=== PATIENT | female | born 1965 | race Caucasian/White ===

== ENCOUNTER 2016-12-05 16:06 | Inpatient (IN) | payer MEDICAID ==
[~2016-12-05] VITALS: Ht 162.6 cm; Wt 130.6 kg
--- NOTE | 2016-12-05 16:07 | NUR ---
BIB FAMILY FOR DIFFUSED ABDOMINAL PAIN, MOSTLY RUQ,9/10, NON RADIATING. PATIENT IS AWAKE, ALERT AND ORIENTED. APPEARS IN NO ACUTE DISTRESS, RESPIRATION EVEN AND UNLABBORED. SKIN IS WARM TO TOUCH AND NON DIAHORETIC. AFEBRILE REPORTED NAUSEA, VOMITING X 2 DAYS. PATIENT'S VS STABLLE. WILL CONT TO MONITOR.
[2016-12-05] MEDS ORDERED: MORPHINE SULFATE INJ 2 MG/ML DISP.SYRIN IV ONE (17:30)
[2016-12-05] MEDS ORDERED: ONDANSETRON HCL/PF 4 MG/2 ML VIAL IVP ONE (17:30)
[2016-12-05] MEDS ORDERED: IV NS 0.9% 1,000 ML BAG IV ONE (17:30)
--- NOTE | 2016-12-05 17:30 | NUR ---
IV ACCESSED TO LEFT WRIST 20, BLOOD SAMPLE SENT TO LAB
[2016-12-05] MEDS ORDERED: ONDANSETRON HCL/PF 4 MG/2 ML VIAL ONE ×2 (17:36→19:43)
[2016-12-05] MEDS ORDERED: IV NS 0.9% 1,000 ML ONE ×2 (17:36→23:41)
[2016-12-05] MEDS ORDERED: IV SET PRIMARY PUMP SET 1 EA INFUS.SET MC ONE ×2 (17:36→23:41)
[2016-12-05] MEDS ORDERED: MORPHINE SULFATE INJ 4 MG/ML DISP.SYRIN ONE ×2 (17:36→20:06)
[2016-12-05 17:43] LABS: BASOPHILS # (AUTO) 0.6 /CMM (0.0-0.2); BASOPHILS % (AUTO) 4.3 % (0.0-2.0); EOSINOPHILS % (AUTO) 0.3 % (0.0-6.0); HEMATOCRIT 37 % (33-45); HEMOGLOBIN 11.4 g/dL (11.5-14.8); LYMPHOCYTES # (AUTO) 1.4 /CMM (0.8-4.8); LYMPHOCYTES % (AUTO) 10.7 % (20.0-44.0); MEAN CORPUSCULAR HEMOGLOBIN 19 PG (26.0-33.0); MEAN CORPUSCULAR HGB CONC 31 g/dl (31.0-36.0); MEAN CORPUSCULAR VOLUME 61 fL (82-100); MONOCYTES # (AUTO) 0.6 /CMM (0.1-1.30); MONOCYTES % (AUTO) 4.5 % (2.0-12.0); NEUTROPHILS # (AUTO) 10.5 /CMM (1.8-8.9); NEUTROPHILS % (AUTO) 80.2 % (43.0-81.0); PLATELET COUNT (AUTO) 272 /CMM (150-450); RDW COEFFICIENT OF VARIATION 17.4 (11.5-15.0); RED BLOOD CELL COUNT(AUTO) 5.98 MIL/uL (4.0-5.2); WHITE BLOOD COUNT (AUTO) 13.1 K/uL (4.3-11.0)
--- NOTE | 2016-12-05 17:47 | NUR ---
MEDICATED PATIENT FOR PAIN ORDRED
[2016-12-05 17:57] LABS: ALBUMIN 3.6 g/dL (3.4-5.0); BILIRUBIN,DIRECT 0.1 mg/dL (0.0-0.2); BILIRUBIN,TOTAL 0.4 mg/dL (0.2-1.0); CALCIUM, SERUM 8.7 mg/dL (8.5-10.1); CREATININE 0.6 mg/dL (0.6-1.3); POTASSIUM 4.5 mmol/L (3.5-5.1); TOTAL PROTEIN, SERUM 8.1 g/dL (6.4-8.2)
--- NOTE | 2016-12-05 18:01 | NUR ---
ANITA BARNEY AT
--- NOTE | 2016-12-05 18:37 | NUR ---
Patient is resting comfortably in bed with eyes closed. Easily aroused. VSS.Fluid ongoing
[2016-12-05] MEDS ORDERED: MAG HYDROX/AL HYDROX/SIMETH 30 ML UDC PO ONE (19:00)
[2016-12-05] MEDS ORDERED: FAMOTIDINE/PF INJ 20 MG/2 ML VIAL IV ONE ×2 (19:00→19:07)
[2016-12-05] MEDS ORDERED: MAG HYDROX/AL HYDROX/SIMETH 30 ML UDC ONE (19:07)
--- NOTE | 2016-12-05 19:08 | NUR ---
REPORT GIVEN TO NUSRAT DAVIS
[2016-12-05 19:11] LABS: EOSINOPHILS % (MANUAL) 2 % (0-4); LYMPHOCYTES % (MANUAL) 14 % (16-48); MONOCYTES % (MANUAL) 7 % (0-11.0); NEUTROPHILS % (MANUAL) 77 (42-76)
[2016-12-05 19:12] LABS: PLATELET ESTIMATE ADEQU
[2016-12-05] MEDS ORDERED: ONDANSETRON HCL/PF 4 MG/2 ML VIAL IV STA (19:35)
[2016-12-05] MEDS ORDERED: MORPHINE SULFATE INJ 2 MG/ML DISP.SYRIN IV STA (19:55)
--- NOTE | 2016-12-05 19:55 | NUR ---
patient to ct.
[2016-12-05 19:56] LABS: APPEARANCE,URINE Clear (CLEAR); BILIRUBIN,URINE Negative (NEGATIVE); BLOOD, URINE Negative Ery/uL (NEGATIVE); COLOR,URINE Yellow (YELLOW); KETONES,URINE 15 (NEGATIVE); LEUKOCYTE ESTERASE ,URINE Negative (NEGATIVE); NITRITE, URINE Negative (NEGATIVE); PH,URINE 5.5 (5.0-8.0); PROTEIN,URINE Trace mg/dl (NEGATIVE); UGLUCOSE Negative (NEGATIVE); UROBILINOGEN,URINE 0.2 EU/dL (0.2)
--- NOTE | 2016-12-05 20:18 | NUR ---
TALKING ON THE PHONE WITH NO S/S OF DISTRESS NOTED. RESP EVEN AND UNLABORED. AWAITS CT SCAN RESULTS.
[2016-12-05 21:54] LABS: ADD URINE CULTURE NO; BACTERIA,URINE Few /HPF (None Seen); MUCUS,URINE Many /LPF (None Seen); RBC,URINE 0-2 /HPF (0-2); SQUAMOUS EPITHELIAL CELL,UR Moderate /HPF (None Seen); URINE AMORPHOUS URATE Few /HPF (None Seen); WBC,URINE 0-2 /HPF (0-3)
--- NOTE | 2016-12-05 22:13 | NUR ---
REPORT CALLED TO O AND M SUPERVISORNUSRAT REARDON. WILL TRANSPORT PT TO M/S ROOM 203
--- NOTE | 2016-12-05 22:25 | NUR ---
RN NOTES RECEIVED PT. FROM ER WITH DX. OF ABDOMINAL PAIN, A/OX4, VIETNAMESE SPEAKING, DAUGHTER AT BEDSIDE, ADMISSION INSTRUCTION WAS GIVEN, ALL LIGHT WITHIN REACH, SIDERAIL;S UPX2, CONTINUE TO MONITOR
[2016-12-05 22:30] VITALS: BP 146/72
--- NOTE | 2016-12-05 23:00 | NUR ---
NUSRAT NOTES MARCELLE FAJARDO-MELISSA,CAME AND TALKED TO THE PT.
[2016-12-05] MEDS ORDERED: MORPHINE SULFATE INJ 2 MG/ML DISP.SYRIN IV PRN (23:30)
[2016-12-05] MEDS ORDERED: MAG HYDROX/AL HYDROX/SIMETH 30 ML UDC PO PRN (23:30)
[2016-12-05] MEDS ORDERED: ONDANSETRON HCL/PF 4 MG/2 ML VIAL IVP PRN (23:30)
[2016-12-05] MEDS ORDERED: MAGNESIUM HYDROXIDE 30 ML UDC PO PRN (23:30)
[2016-12-05] MEDS ORDERED: TEMAZEPAM 15 MG CAPSULE PO PRN (23:30)
[2016-12-06] MEDS: IV NS 0.9% 1,000 ML BAG IV PRN ×2 (00:02→23:34)
--- NOTE | 2016-12-06 06:19 | NUR ---
RN NOTES AWAKE, MORNING CARE RENDERED, IV FLUID RUNNING, IV LIEN PATENT NO REDNESS OR SWOLLEN, PT. NEEDS ATTENDED
[2016-12-06 06:59] LABS: BASOPHILS % (AUTO) 0.3 % (0.0-2.0); EOSINOPHILS # (AUTO) 0.1 /CMM (0.0-0.7); EOSINOPHILS % (AUTO) 1.1 % (0.0-6.0); HEMATOCRIT 33 % (33-45); HEMOGLOBIN 10.3 g/dL (11.5-14.8); LYMPHOCYTES # (AUTO) 1.8 /CMM (0.8-4.8); LYMPHOCYTES % (AUTO) 17.4 % (20.0-44.0); MEAN CORPUSCULAR HEMOGLOBIN 20 PG (26.0-33.0); MEAN CORPUSCULAR HGB CONC 32 g/dl (31.0-36.0); MEAN CORPUSCULAR VOLUME 62 fL (82-100); MONOCYTES # (AUTO) 0.9 /CMM (0.1-1.30); MONOCYTES % (AUTO) 8.4 % (2.0-12.0); NEUTROPHILS # (AUTO) 7.4 /CMM (1.8-8.9); NEUTROPHILS % (AUTO) 72.8 % (43.0-81.0); PLATELET COUNT (AUTO) 265 /CMM (150-450); RDW COEFFICIENT OF VARIATION 18.5 (11.5-15.0); RED BLOOD CELL COUNT(AUTO) 5.23 MIL/uL (4.0-5.2); WHITE BLOOD COUNT (AUTO) 10.1 K/uL (4.3-11.0)
[2016-12-06 07:05] LABS: CALCIUM, SERUM 7.9 mg/dL (8.5-10.1); CREATININE 0.5 mg/dL (0.6-1.3); MAGNESIUM 1.8 mg/dL (1.8-2.4); PHOSPHORUS 3.3 mg/dL (2.5-4.9); POTASSIUM 3.5 mmol/L (3.5-5.1)
--- NOTE | 2016-12-06 07:30 | NUR ---
MS/RN OPENING NOTE PT. AWAKE, A&OX4, NO SOB, UNLABORED BREATHING, NOT IN DISTRESS. LEFT WRIST IV ACCESS INFUSING 100ML/HR AND INTACT. PT. IS NPO FOR MRCP TEST AT 1200. BED IN LOW POSITION, 2 BED RAILS UP. CALL LIGHT WITHIN REACH.
[2016-12-06 08:00] VITALS: BP 134/78
[2016-12-06] MEDS: PANTOPRAZOLE 40 MG VIAL IV SCH (08:25)
[2016-12-06] MEDS ORDERED: LOSA1TAB36 PO (08:55)
[2016-12-06] MEDS ORDERED: ATOR10TA PO (08:55)
[2016-12-06] MEDS ORDERED: GABA-532 PO (08:55)
[2016-12-06] MEDS ORDERED: ERGO50003 PO (08:55)
[2016-12-06] MEDS ORDERED: DOCU250C75 PO (08:55)
[2016-12-06] MEDS ORDERED: FERR-58 PO (08:55)
[2016-12-06] MEDS ORDERED: FAMO20TA8 PO (08:55)
[2016-12-06] MEDS ORDERED: AMLO10TA2 PO (08:55)
[2016-12-06 09:38] LABS: NEUTROPHILS % (MANUAL) 76 (42-76)
[2016-12-06 09:39] LABS: ANISOCYTOSIS 1+; BASOPHILS % (MANUAL) 0 % (0.0-2.0); EOSINOPHILS % (MANUAL) 1 % (0-4); LYMPHOCYTES % (MANUAL) 17 % (16-48); MONOCYTES % (MANUAL) 6 % (0-11.0)
[2016-12-06 09:40] LABS: HYPOCHROMASIA 1+; PLATELET ESTIMATE ADEQUATE
[2016-12-06] MEDS: ACETAMINOPHEN 325 MG TABLET PO PRN ×2 (11:52→21:58)
--- NOTE | 2016-12-06 11:55 | NUR ---
MS/HEALTH INFORMATICS SPECIALIST PT. C/P HEADACHE PAIN 12/26, PT. WAS OFFERED MORPHINE AND REFUSED. TYLENOL WAS GIVEN.
--- NOTE | 2016-12-06 12:30 | NUR ---
MS/RN RETURN TO SAME ROOM PT. RETUNED TO ROOM IN STABLE CONDITION. PT. REPORTED DECREASE IN LEVEL OF HEADACHE PAIN 3/10, AND ABDOMINAL PAIN. PER MD ORDER PT. CAN START ON A CLEAR LIQUID DIET TOLERATED, AND TO GET OUT OF BED TOLERATED. PT. BED IS IN LOW POSITION, CALL LIGHT WITHIN REACH, AND 2 SIDE RAILS ARE UP.
[2016-12-06 16:00] VITALS: BP 146/89
--- NOTE | 2016-12-06 16:00 | NUR ---
MS/RN CONSULTATION PT. WAS SEEN BY DR. JOHNSON, DISCUSSED DOING AN ENDOSCOPY FOR FURTHER EVALUATION. PT. CAN ADVANCE TO SOFT DIET TOLERATED PER MD ORDER.
--- NOTE | 2016-12-06 17:00 | NUR ---
MS/RN MEDICATIONS PT. WAS GIVEN MAALOX DO TO STOMACH UPSET AND HUNGER PAINS. PT. WAS ENCOURAGED TO DRINK FLUIDS, AND EAT APPLESAUCE.
--- NOTE | 2016-12-06 17:30 | NUR ---
MS/RN PAIN MEDICATION PT. C/O ABDOMINAL PAIN 03/28, MORPHINE WAS GIVEN 0.5ML.
[2016-12-06] MEDS: MORPHINE SULFATE INJ 2 MG/ML DISP.SYRIN IV PRN ×2 (17:32→20:15)
--- NOTE | 2016-12-06 19:30 | NUR ---
MS NURSE'S OPENING NOTE RECEIVED REPORT FROM NIGHT NURSE. PATIENT IS IN BED, SIDE RAILS UP X2, CALL LIGHT WITHIN REACH AND ADMITS TO HAVING 9/10 PAIN. WILL ADMINISTER PAIN MED.
--- NOTE | 2016-12-06 19:30 | NUR ---
MS NURSE'S OPENING NOTE RECEIVED REPORT FROM NIGHT NURSE. PATIENT IS LYING IN BED, SIDE RAILS UP X2, CALL LIGHT WITHIN REACH AND ADMITS TO NAUSEA. WILL ADMINISTER ZOFRAN.
--- NOTE | 2016-12-06 19:47 | NUR ---
MS/RN CLOSING NOTE PT. IN BED C/O ABDOMINAL PAIN 03/28. PT. WAS GIVEN MORPHINE AT 1732. PT. VITALS BP 141/72, HR 77, RR 18. DREAD ROMAN WAS CONTACTED REGARDING PT. HOME MEDICATION. PT. WAS STATED TO CONTINUE ALL HOME MEDICATIONS. DISCHARGE ON HOLD UNTIL TOMORROW MORNING DUE TO ONGOING ABDOMINAL PAIN. FAMILY AT BEDSIDE AND UPDATED TO PLAN OF CARE IN AGREEMENT. CALL LIGHT WITHIN REACH. WILL ENDORSE TO SUPPLY CHAIN TECHNICIAN.
[2016-12-06 20:00] VITALS: BP 134/72
--- NOTE | 2016-12-06 20:38 | NUR ---
RN NOTES PT. IS COMPLAINING OF A LOT OF PAIN ON HER ABDOMEN AFTER EATING HER DINNER- MORPHINE 1MG IV GIVEN ORDERED, V/S STABLE
--- NOTE | 2016-12-06 20:39 | NUR ---
PT COMPLAINED OF NAUSEA. ADMINISTERED ZOFRAN PRN.
[2016-12-06 21:21] VITALS: BP 167/87
[2016-12-06 21:47] VITALS: BP 134/72
--- NOTE | 2016-12-06 22:00 | NUR ---
PATIENT COMPLAINS OF PAIN 10/26. ADMINISTERED PRN TYLENOL.
[2016-12-06] MEDS ORDERED: IV NS 0.9% 1,000 ML ONE (23:14)
[2016-12-07] MEDS ORDERED: MORPHINE SULFATE INJ 2 MG/ML DISP.SYRIN IV PRN
--- NOTE | 2016-12-07 00:01 | NUR ---
MS PAIN MEDICATION NOTE SPOKE TO MARCELLE FAJARDO. RECEIVED AN ORDER TO INCREASE MORPHINE FROM 1 MG TO 2MG MORPHINE IVPUSH Q 4 HRS.
[2016-12-07] MEDS ORDERED: MORPHINE SULFATE INJ 2 MG/ML DISP.SYRIN ONE (01:20)
--- NOTE | 2016-12-07 01:43 | NUR ---
MS PAIN FABRIC AND ACCESSORIES ESTIMATOR PT COMPLAINED OF ABDOMINAL PAIN 03/28. ADMINISTERED PRN 2 MG MORPHINE.
--- NOTE | 2016-12-07 06:49 | NUR ---
PT IS RESTING IN BED, SIDE RAILS UP X2, BED IN LOCKED POSITION, CALL LIGHT WITHIN REACH. PT SHOWS NO SIGNS OF DISTRESS.
[2016-12-07 07:04] LABS: HEMATOCRIT 33 % (33-45); HEMOGLOBIN 10.1 g/dL (11.5-14.8); MEAN CORPUSCULAR HEMOGLOBIN 20 PG (26.0-33.0); MEAN CORPUSCULAR HGB CONC 31 g/dl (31.0-36.0); MEAN CORPUSCULAR VOLUME 64 fL (82-100); PLATELET COUNT (AUTO) 251 /CMM (150-450); RDW COEFFICIENT OF VARIATION 18.5 (11.5-15.0); RED BLOOD CELL COUNT(AUTO) 5.09 MIL/uL (4.0-5.2); WHITE BLOOD COUNT (AUTO) 10.4 K/uL (4.3-11.0)
[2016-12-07 07:07] LABS: CALCIUM, SERUM 7.9 mg/dL (8.5-10.1); CREATININE 0.5 mg/dL (0.6-1.3); POTASSIUM 3.7 mmol/L (3.5-5.1)
--- NOTE | 2016-12-07 07:30 | NUR ---
MS/RN OPENING NOTE PT. A&OX4, SLEEPING IN BED, OPENED EYES SPONTANEOUSLY TO NAME. BREATHING EVENLY, AND UNLABORED. PT. IS ON NPO. PT. REPORTED ABDOMINAL PAIN IS A 3/10, DESCRIBES IT SQUEEZING, PULLING, AND FULLNESS. BED IS IN LOW POSITION, 2 SIDE RAILS UP, FAMILY IS NEAR BEDSIDE.
[2016-12-07 08:00] VITALS: BP 151/88
[2016-12-07] MEDS ORDERED: LOSARTAN/HCTZ 50-12.5MG/ 1 EA TABLET PO SCH (09:00)
[2016-12-07] MEDS ORDERED: FERROUS SULFATE (325 MG) 325 MG/TAB TABLET PO SCH (09:00)
[2016-12-07] MEDS ORDERED: GABAPENTIN 100 MG CAPSULE PO SCH (09:00)
[2016-12-07] MEDS ORDERED: ATORVASTATIN 10 MG TABLET PO SCH (09:00)
[2016-12-07] MEDS ORDERED: DOCUSATE SODIUM 250 MG CAPSULE PO SCH (09:00)
[2016-12-07] MEDS ORDERED: AMLODIPINE BESYLATE 10 MG TABLET PO SCH (09:00)
[2016-12-07] MEDS: PANTOPRAZOLE 40 MG VIAL IV SCH (09:06)
[2016-12-07 09:53] LABS: BAND % (MANUAL) 2 % (0.0-5.0); LYMPHOCYTES % (MANUAL) 9 % (16-48); MONOCYTES % (MANUAL) 3 % (0-11.0); NEUTROPHILS % (MANUAL) 86 (42-76); PLATELET ESTIMATE ADEQUATE
[2016-12-07 09:54] LABS: ANISOCYTOSIS 3+; HYPOCHROMASIA 3+
--- NOTE | 2016-12-07 12:52 | NUR ---
MS/RN PT. LEFT ROOM PT. LEFT ROOM TO HAVE MRCP FOR ABDOMEN.
--- NOTE | 2016-12-07 13:30 | NUR ---
MS/RN RETUNED TO ROOM PT. RETURNED TO SAME ROOM AFTER MRCP. MRCP COULD NOT BE COMPLETED. DREAD ROMAN WAS NOTIFIED, AND ORDERED TO START ON A CLEAR LIQUID DIET, AND DR. LOPES WILL DISCUSS NEXT PLAN OF CARE WITH PT.
--- NOTE | 2016-12-07 13:54 | NUR ---
MS/RN CLEAR LIQUIDS PT. CAN START ON A CLEAR LIQUID DIET PER MD ORDER. PT. WAS GIVEN STRAWBERRY JELLO AND APPLE JUICE.
[2016-12-07 14:00] VITALS: BP 127/74
[2016-12-07] MEDS ORDERED: HYDR-3326 PO (15:21)
[2016-12-07 16:00] VITALS: BP 127/74
--- NOTE | 2016-12-07 16:30 | NUR ---
MS/RN CLOSING NOTE PT. WAS GIVEN DISCHARGE INSTRUCTIONS HOME. PT. IS TO FOLLOW UP WITH SURGEON OF CHOLECYSTECTOMY. POSSIBLE FURTHER EVALUATION WITH ERCP IF SYMPTOMS PERSIST. CLEAR LIQUID DIET WITH PAIN CONTROL UNTIL SYMPTOMS SUBSIDE THEN ADVANCE DIET TOLERATED. PT. WAS PROVIDED EDUCATION ON TAKING PAIN MEDICATION, AND VERBALIZED UNDERSTANDING. PT. VITALS ON DISCHARGE TEMP. 98.6F, BP 127/74, PULSE 91, RESP.18, SPO2 97%, ABDOMINAL PAIN 3/10. PT. LEFT SOH WITH HER . HEP LOCK AND NAME BANDS WERE REMOVED.
[2016-12-09] MEDS ORDERED: ERGOCALCIFEROL (VITAMIN D 2) 50,000 UNIT CAPSULE PO SCH (08:30)
== END 2016-12-07 15:00 | disposition home or self-care (01) ==
LOC: ER 16:08 → MEDSG2 22:52
PROVIDERS: ADMIT Nurse Practitioner Acute Care; ATTEND Nurse Practitioner Acute Care
DX: K80.50 Calculus of bile duct without cholangitis or cholecystitis without obstruction (principal); K76.0 Fatty (change of) liver, not elsewhere classified; E44.0 Moderate protein-calorie malnutrition; E87.1 Hypo-osmolality and hyponatremia; E11.65 Type 2 diabetes mellitus with hyperglycemia; R16.0 Hepatomegaly, not elsewhere classified; Z68.42 Body mass index [BMI] 45.0-49.9, adult; E66.01 Morbid (severe) obesity due to excess calories; D72.829 Elevated white blood cell count, unspecified; Z90.49 Acquired absence of other specified parts of digestive tract; K86.1 Other chronic pancreatitis; I10 Essential (primary) hypertension
CPT/HCPCS: 36415; 76705-TC; 80048-TC; 80061-TC; 80076-TC; 81000-TC; 83690-TC; 83735-TC; 84100-TC; 84484-TC; 85025-TC; A4606; C9113; J2270; J2405; J3490; J7030; Z7610

== ENCOUNTER 2017-04-27 19:19 | Inpatient (IN) | payer MEDICAID ==
[~2017-04-27] VITALS: Ht 157.5 cm; Wt 136.5 kg
[~2017-04-27 19:19] MED LIST: AMLO10TA2 PO; ATOR10TA PO; DOCU250C75 PO; ERGO50003 PO; FERR-58 PO; GABA-532 PO; HYDR-3326 PO; LOSA1TAB36 PO
--- NOTE | 2017-04-27 19:31 | NUR ---
BB FROM HOME; RIGHT FLANK/ RIGHT ABD PAIN WITH NAUSEA. PT AOX3 RR EVEN AND UNLABORED. NO SOB NOTED. NAD NOTED. NO NVD AT THIS TIME. PT NOT DIAPHORETIC. PT GOWNED AND PLACED ON MONITOR WAITING FOR MD BRADLEY.
--- NOTE | 2017-04-27 19:37 | NUR ---
PAC DEGRASSI AT BEDSIDE FOR EVAL.
--- NOTE | 2017-04-27 19:40 | NUR ---
URINE COLLECTED. SENT TO LAB
[2017-04-27 19:47] LABS: APPEARANCE,URINE Clear (CLEAR); BILIRUBIN,URINE Negative (NEGATIVE); BLOOD, URINE Negative Ery/uL (NEGATIVE); COLOR,URINE Yellow (YELLOW); KETONES,URINE Negative (NEGATIVE); LEUKOCYTE ESTERASE ,URINE Negative (NEGATIVE); NITRITE, URINE Negative (NEGATIVE); PH,URINE 5.5 (5.0-8.0); PROTEIN,URINE Negative (NEGATIVE); UGLUCOSE Negative (NEGATIVE); UROBILINOGEN,URINE 0.2 EU/dL (0.2)
[2017-04-27 19:52] LABS: BASOPHILS # (AUTO) 0.3 /CMM (0.0-0.2); BASOPHILS % (AUTO) 3.3 % (0.0-2.0); EOSINOPHILS # (AUTO) 0.2 /CMM (0.0-0.7); EOSINOPHILS % (AUTO) 2.8 % (0.0-6.0); HEMATOCRIT 34 % (33-45); HEMOGLOBIN 10.7 g/dL (11.5-14.8); LYMPHOCYTES # (AUTO) 1.8 /CMM (0.8-4.8); MEAN CORPUSCULAR HEMOGLOBIN 20 PG (26.0-33.0); MEAN CORPUSCULAR HGB CONC 31 g/dl (31.0-36.0); MEAN CORPUSCULAR VOLUME 63 fL (82-100); MONOCYTES # (AUTO) 0.5 /CMM (0.1-1.30); MONOCYTES % (AUTO) 6.6 % (2.0-12.0); NEUTROPHILS # (AUTO) 4.9 /CMM (1.8-8.9); NEUTROPHILS % (AUTO) 64.3 % (43.0-81.0); PLATELET COUNT (AUTO) 249 /CMM (150-450); RDW COEFFICIENT OF VARIATION 17.1 (11.5-15.0); RED BLOOD CELL COUNT(AUTO) 5.41 MIL/uL (4.0-5.2); WHITE BLOOD COUNT (AUTO) 7.8 K/uL (4.3-11.0)
[2017-04-27 20:01] LABS: CALCIUM, SERUM 8.2 mg/dL (8.5-10.1); CREATININE 0.7 mg/dL (0.6-1.3); POTASSIUM 3.8 mmol/L (3.5-5.1)
[2017-04-27 20:13] LABS: ALBUMIN 3.5 g/dL (3.4-5.0); BILIRUBIN,DIRECT 0.1 mg/dL (0.0-0.2); BILIRUBIN,TOTAL 0.4 mg/dL (0.2-1.0); TOTAL PROTEIN, SERUM 7.4 g/dL (6.4-8.2)
--- NOTE | 2017-04-27 21:18 | NUR ---
PAC WANDA MADE AWARE OF PT BP, PT APPEARS COMFORTABLE. PT ASYMTOMPATIC.
--- NOTE | 2017-04-27 21:29 | NUR ---
PAC WANDA AT BEDSIDE SPEAKING TO PT
--- NOTE | 2017-04-27 22:11 | NUR ---
DATA DESIGNER AT BEDSIDE
--- NOTE | 2017-04-27 23:03 | NUR ---
DR. SIDDIQUI AT BEDSIDE SPEAKING TO PT REGARDING RESULTS.
--- NOTE | 2017-04-27 23:13 | NUR ---
PT TO RADIOLOGY FOR CT ABD/PELVIS
[2017-04-27 23:43] LABS: EOSINOPHILS % (MANUAL) 5 % (0-4); LYMPHOCYTES % (MANUAL) 17 % (16-48); MONOCYTES % (MANUAL) 7 % (0-11.0); NEUTROPHILS % (MANUAL) 71 (42-76)
--- NOTE | 2017-04-27 23:45 | NUR ---
PT RETURNED FROM CT.
[2017-04-28] MEDS ORDERED: FAMO20TA8 PO (01:25)
--- NOTE | 2017-04-28 01:26 | NUR ---
DR. SIDDIQUI SPOKE TO DR. DUBOSE REGARDING ADMISSION
--- NOTE | 2017-04-28 01:45 | NUR ---
REPORT GIVEN TO NUSRAT PEDERSON FOR BED 321-1
[2017-04-28 02:00] VITALS: BP 157/90
--- NOTE | 2017-04-28 02:11 | NUR ---
MS SILVERIO INITIAL NOTES PT WAS BROUGHT UP FROM ER VIA [place], WAS ABLE TO AMBULATE FROM THE GURNEY TO THE BED WITH MINIMAL ASSISTANCE. FAMILY IS AT BEDSIDE. BREATHING EVENLY AND UNLABORED ON ROOM AIR, NO SIGNS OF SOB OR DISTRESS. DENIES PAIN. IV ACCESS IS INTACT AND PATENT. ORDERS TO BE CARRIED OUT. WILL CONTINUE TO MONITOR PT.
--- NOTE | 2017-04-28 02:16 | NUR ---
PT TRANSFERED TO [place] BED 321-1 VIA [facility].
[2017-04-28 02:55] VITALS: BP 157/90
--- NOTE | 2017-04-28 03:22 | NUR ---
ROCEPHIN NOT ADMINISTERED, ALREADY RECEIVED IN ER
--- NOTE | 2017-04-28 06:11 | NUR ---
MS RN CLOSING NOTES PT IS IN BED SLEEPING WITH AT BEDSIDE. NO SIGNS OF SOB OR DISTRESS, BREATHING EVENLY AND UNLABORED ON ROOM AIR. DENIES PAIN. IV FLUIDS WERE INITIATED, IV ACCESS IS INTACT AND PATENT. PT [id number] A SINGLE ROOM OR A QUIETER ROOMMATE. BED IS IN LOW AND LOCKED POSITION, CALL LIGHT WITHIN REACH. WILL ENDORSE TO DAY SHIFT.
--- NOTE | 2017-04-28 07:10 | NUR ---
MS RN OPENING NOTES RECEIVED PT FROM NIGHTSHIFT NURSE IN STABLE CONDITION. PT IS A/O X3. NO SOB NOTED. BREATHING IS EVEN AND UNLABORED. PT COMPLAINS OF AN ACHING PAIN RATED A 6/10 ON HER RIGHT ABDOMINAL SIDE. WILL ADMINISTER PRN PAIN MEDICATION ONCE VERIFIED BY PHARMACY. IV ON RIGHT WRIST 20 G PATENT AND INTACT INFUSING NS @100ML/HR. PT IS TOLERATING INFUSION WELL. NO REDNESS OR SIGNS OF INFILTRATION NOTED, PT DENIES ANY NAUSEA AND REPORTS NO EPISODES OF VOMITING DURING THE NIGHT. BED IN LOW LOCKED POSITION, SIDE RAILS UP X2, CALL LIGHT WITHIN REACH. IS AT BEDSIDE. WILL CONTINUE TO MONITOR
[2017-04-28 08:00] VITALS: BP 135/76
[2017-04-28 16:00] VITALS: BP 129/71
--- NOTE | 2017-04-28 17:57 | NUR ---
MS LINEMARKER NOTES PT WAS DISCHARGED FROM UNIT IN STABLE CONDITION. ALL NEEDS WERE MET DURING SHIFT AND ORDERS CARRIED OUT ACCORDINGLY. ALL DISCHARGE INSTRUCTIONS WERE THOROUGHLY DISCUSSED WITH PT. PT. VERBALIZED FULL UNDERSTANDING OF INSTRUCTIONS. DISCHARGE PAPERWORK ALONG WITH BELONGINGS FOR WAS SIGNED BY PT. ALL BELONGINGS TAKEN WITH PT. PT WAS SAFELY ESCORTED OUT OF THE HOSPITAL BY GERALD AND LEFT VIA PRIVATE VEHICLE DRIVEN BY HER DAUGHTER.
== END 2017-04-28 17:50 | disposition home or self-care (01) | DRG 282 ==
LOC: ER 19:20 → MED 04-28 01:43
PROVIDERS: ADMIT Internal Medicine; ATTEND Internal Medicine
DX: K85.90 Acute pancreatitis without necrosis or infection, unspecified (principal); K76.0 Fatty (change of) liver, not elsewhere classified; Z68.43 Body mass index [BMI] 50.0-59.9, adult; E66.01 Morbid (severe) obesity due to excess calories; I10 Essential (primary) hypertension; K21.9 Gastro-esophageal reflux disease without esophagitis; E11.9 Type 2 diabetes mellitus without complications; E78.5 Hyperlipidemia, unspecified; Z90.49 Acquired absence of other specified parts of digestive tract; K80.20 Calculus of gallbladder without cholecystitis without obstruction
CPT/HCPCS: 36415; 71010-TC; 76705-TC; 80048-TC; 80076-TC; 81000-TC; 83690-TC; 84484-TC; 85025-TC; 87081-TC; A4216; A4606; J0696; J1170; J2270; J2405; J2765; J3490; J7030; J7050; J7060; Q9967; Z7610

== ENCOUNTER 2019-03-06 10:11 | Emergency (ER) | payer MEDICAID ==
[~2019-03-06] VITALS: Ht 154.9 cm; Wt 138.3 kg
[~2019-03-06 10:11] MED LIST changes: -AMLO10TA2 PO; -ATOR10TA PO; -DOCU250C75 PO; -ERGO50003 PO; +FAMO20TA8 PO; -FERR-58 PO; -GABA-532 PO; -HYDR-3326 PO; +HYDR-3974 PO; -LOSA1TAB36 PO
--- NOTE | 2019-03-06 10:15 | NUR ---
C/O BACK PAIN RADIATES TO R GROIN AREA STARTED YESTERDAY. PATIENT A/OX4, BREATHING EVEN AND UNLABORED, NO SOB NOTED, PATIENT IN NO DISTRESS, VSS, TAKEN TO CT.
[2019-03-06] MEDS ORDERED: ONDANSETRON HCL/PF 4 MG/2 ML VIAL ONE (10:59)
[2019-03-06] MEDS ORDERED: MORPHINE SULFATE INJ 4 MG/ML DISP.SYRIN ONE (10:59)
[2019-03-06] MEDS ORDERED: KETOROLAC TROMETHAMINE 15 MG/ML VIAL ONE (10:59)
[2019-03-06] MEDS ORDERED: KETOROLAC TROMETHAMINE INJ 30 MG/ML VIAL IV ONE (11:00)
[2019-03-06] MEDS ORDERED: ONDANSETRON HCL/PF 4 MG/2 ML VIAL IVP ONE (11:00)
[2019-03-06] MEDS ORDERED: MORPHINE SULFATE INJ 2 MG/ML DISP.SYRIN IV ONE (11:00)
[2019-03-06] MEDS ORDERED: IV NS 0.9% 500 ML BAG IV ONE (11:00)
[2019-03-06 11:13] LABS: APPEARANCE,URINE Clear (CLEAR); BILIRUBIN,URINE Negative (NEGATIVE); BLOOD, URINE Negative Ery/uL (NEGATIVE); COLOR,URINE Yellow (YELLOW); KETONES,URINE Negative (NEGATIVE); LEUKOCYTE ESTERASE ,URINE Negative (NEGATIVE); NITRITE, URINE Negative (NEGATIVE); PROTEIN,URINE Negative (NEGATIVE); UGLUCOSE Negative (NEGATIVE); UROBILINOGEN,URINE 0.2 EU/dL (0.2)
[2019-03-06 11:21] LABS: BASOPHILS # (AUTO) 0.1 /CMM (0.0-0.2); MEAN CORPUSCULAR VOLUME 63 fL (82-100); MONOCYTES # (AUTO) 0.4 /CMM (0.1-1.30); NEUTROPHILS # (AUTO) 5.1 /CMM (1.8-8.9); PLATELET COUNT (AUTO) 251 /CMM (150-450)
[2019-03-06 11:24] LABS: BASOPHILS % (AUTO) 0.7 % (0.0-2.0); EOSINOPHILS % (AUTO) 3.1 % (0.0-6.0); HEMATOCRIT 32 % (33-45); HEMOGLOBIN 10.2 g/dL (11.5-14.8); LYMPHOCYTES # (AUTO) 1.4 /CMM (0.8-4.8); LYMPHOCYTES % (AUTO) 19.7 % (20.0-44.0); MEAN CORPUSCULAR HGB CONC 32 g/dl (31.0-36.0); MONOCYTES % (AUTO) 5.6 % (2.0-12.0); NEUTROPHILS % (AUTO) 70.9 % (43.0-81.0); RED BLOOD CELL COUNT(AUTO) 5.06 MIL/uL (4.0-5.2); WHITE BLOOD COUNT (AUTO) 7.2 K/uL (4.3-11.0)
[2019-03-06 11:28] LABS: CALCIUM, SERUM 8.6 mg/dL (8.5-10.1); CREATININE 0.7 mg/dL (0.6-1.3); POTASSIUM 4.3 mmol/L (3.5-5.1)
[2019-03-06 11:34] LABS: ALBUMIN 3.4 g/dL (3.4-5.0); BILIRUBIN,DIRECT 0.1 mg/dL (0.0-0.2); BILIRUBIN,TOTAL 0.3 mg/dL (0.2-1.0); TOTAL PROTEIN, SERUM 7.6 g/dL (6.4-8.2)
[2019-03-06] MEDS ORDERED: HYDROCODONE/APAP 5/325MG 1 EACH TABLET ONE (12:46)
[2019-03-06] MEDS ORDERED: HYDROCODONE/APAP 5/325MG 1 EACH TABLET PO ONE (13:00)
--- NOTE | 2019-03-06 13:00 | NUR ---
IV removed. Catheter intact and site benign. Pressure and 4x4 applied to site. No bleeding noted. Patient discharged to home in stable condition. Written and verbal after care instructions given. Patient verbalizes understanding of instruction. Patient ambulatory with a steady gait. Addendum: 03/06/19 at 1316 by ROALCANCES addendum: patient still c/o mild abdominal pain. 11/26.
[2019-03-06 13:19] VITALS: BP 149/77
== END 2019-03-06 13:20 | disposition home or self-care (01) ==
LOC: ER 10:12
DX: K80.50 Calculus of bile duct without cholangitis or cholecystitis without obstruction (principal); I10 Essential (primary) hypertension; Z90.49 Acquired absence of other specified parts of digestive tract
CPT/HCPCS: 36415; 74176; 80048; 80076; 81001; 83690; 85025; 96374; 96375; 99284; J1885; J2270; J2405; J7040; 81000-TC